=== PATIENT | male | born 1990 | race Caucasian/White ===

== ENCOUNTER 2017-01-22 18:31 | Emergency (ER) | payer OTHER ==
[2017-01-22] MEDS ORDERED: Adacel Vial IM ONE ×2 (18:46→18:52)
[2017-01-22] MEDS ORDERED: Fluor-I-Strip/Ful-Flo OP ONE ×2 (18:46→18:49)
[2017-01-22] MEDS ORDERED: TETRACAINE 0.5% STERI-UNIT SOL OP STA (18:46)
[2017-01-22 18:47] VITALS: O2SAT 100
[2017-01-22] MEDS ORDERED: Eye-Stream Solution OP ONE (18:48)
[2017-01-22] MEDS ORDERED: Eye-Stream Solution ONE (18:49)
[2017-01-22] MEDS ORDERED: TETRACAINE 0.5% STERI-UNIT SOL OP ONE (18:49)
--- NOTE | 2017-01-22 19:02 | ERPHSYRPT ---
- History of Present Illness Time Seen by Provider: 01/22/17 18:43 Source: patient, family Patient Subjective Stated Complaint: lt eye injury Triage Nursing Assessment: 1800--dog jumped over pt and toenail hit lt eye. red area to inner lt sclera. pt had contact in when incident happened and he removed contact after incident. no drainage noted. visual acuity Physician History: CC: left eye injury Hx: 26 y/o healthy male wears contact lenses. His dog jumped over his head an hour ago and the dog claw scratched left eye. No other injuries. No blurred vision. He took out the contact. Unsure last tetanus vaccine. Timing/Duration: today Location: left eye Severity: mild Allergies/Adverse Reactions: cefaclor [From [facility]] Allergy (Verified 01/22/17 18:47) Home Medications: No Home Meds 1 ea UD 01/22/17 [History] Hx Tetanus, Diphtheria Vaccination/Date Given: No Hx Influenza Vaccination/Date Given: No Hx Pneumococcal Vaccination/Date Given: No Immunizations Up to Date: Yes - Review of Systems Constitutional: No Symptoms Eyes: Tearing, No Vision Changes Abdominal/Gastrointestinal: No Nausea, No Vomiting Skin: No Rash Neurological: No Headache - Past Medical History Pertinent Past Medical History: No - Past Surgical History Past Surgical History: No - Social History Smoking Status: Never smoker Exposure to second hand smoke: Yes Drug Use: none 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) - Nursing Vital Signs Nursing Vital Signs: Initial Vital Signs Temperature 98.3 F Temperature Source Oral Pulse Rate 85 Respiratory Rate 18 Blood Pressure [Right Arm] 147/84 Pain Intensity 0 - Physical Exam General Appearance: alert Vision Acuity Right Eye: 20/50 Vision Acuity Left Eye: 20/200 Eye Exam: bilateral eye: PERRL, EOMI Ears, Nose, Throat Exam: normal ENT inspection, moist mucous membranes Neck Exam: normal inspection, non-tender, supple Neurologic: alert, oriented x 3, cooperative Skin Exam: warm, dry SpO2: 100 Oxygen Delivery: Room Air Comments: Left eye has medial subconjunctival hemorrhage. PERRL. No hyphema. EOMI. Left eye IOP 19. Contact lens is out. Lid everted. No FB. No fluoroscein uptake. - Course Nursing assessment & vital signs reviewed: Yes Ordered Tests: Active Orders 24 hr Category Date Time Status Visual Acuity STAT Care 01/22/17 18:46 Active Medication Summary Discontinued Medications Generic Name Dose Route Start Last Admin Trade Name Suman PRN Reason Stop Dose Admin Diphtheria/Tetanus/Acell Pertussis 0.5 ml 01/22/17 18:46 Adacel Vial IM 01/22/17 18:47 .ONCE ONE Diphtheria/Tetanus/Acell Pertussis Confirm 01/22/17 18:52 Adacel Vial Administered 01/22/17 18:53 Dose 0.5 ml IM .STK-MED ONE Eye Irrigation Solution 15 ml 01/22/17 18:48 Eye-Stream Solution OP 01/22/17 18:49 STAT ONE Eye Irrigation Solution Confirm 01/22/17 18:49 Eye-Stream Solution Administered 01/22/17 18:50 Dose 30 ml .ROUTE .STK-MED ONE Fluorescein Sodium 1 mg 01/22/17 18:46 Zxhkh-D-Jycau/Ful-Josef OP 01/22/17 18:47 STAT ONE Fluorescein Sodium Confirm 01/22/17 18:49 Diktw-M-Ioyjr/Ful-Josef Administered 01/22/17 18:50 Dose 1 mg OP .STK-MED ONE Tetracaine HCl 4 ml 01/22/17 18:46 Tetracaine 0.5% Steri-Unit Dion OP 01/22/17 18:47 STAT STA Tetracaine HCl Confirm 01/22/17 18:49 Tetracaine 0.5% Steri-Unit Dion Administered 01/22/17 18:50 Dose 4 ml OP .STK-MED ONE - Progress Progress Note: 01/22/17 19:02 Rx acular and cipro eye gtts. Advised eye follow up before wearing contact lenses. Counseled pt/family regarding: diagnosis, need for follow-up - Departure Time of Disposition: 19:02 Departure Disposition: Home Clinical Impression: Conjunctival hemorrhage, left eye Condition: Stable Critical Care Time: No Referrals: DOCTOR,NO FAMILY [Primary Care Provider] - Instructions: Eye Contusion Additional Instructions: Rx cipro eye drops. Rx acular eye drops. No contact lense useage until seen by eye doctor. Follow up with eye doctor in 1-2 days. Prescriptions: Ciprofloxacin 0.3% Ophth [Ciloxan OPHTH] 1 drops OP Q4HWA #1 bottle Ketorolac Tromethamine 0.5% [Acular OPTH DION] 1 drops OP QID #1 bottle
[2017-01-22 19:13] VITALS: BP 134/75; PULSE 72
== END 2017-01-22 19:13 | disposition home or self-care (01) ==
LOC: ED 18:31
DX: H11.32 Conjunctival hemorrhage, left eye (principal); W54.1XXA Struck by dog, initial encounter
CPT/HCPCS: 90471; 90715; 99284

== ENCOUNTER 2018-02-20 02:51 | Emergency (ER) | payer OTHER ==
[2018-02-20] MEDS ORDERED: Fluor-I-Strip/Ful-Flo OP ONE ×2 (03:01→03:10)
[2018-02-20] MEDS ORDERED: TETRACAINE 0.5% STERI-UNIT SOL OP ONE (03:01)
[2018-02-20] MEDS ORDERED: Eye-Stream Solution ONE (03:07)
[2018-02-20 03:08] VITALS: BP 120/82; PULSE 63; O2SAT 98
[2018-02-20] MEDS ORDERED: Eye-Stream Solution OP ONE (03:10)
[2018-02-20] MEDS ORDERED: TETRACAINE 0.5% STERI-UNIT SOL OP STA (03:10)
[2018-02-20] MEDS ORDERED: Sodium Chloride 0.9% 500 ML 500 ML IV ONE (03:16)
--- NOTE | 2018-02-20 03:21 | ERPHSYRPT ---
- History of Present Illness Time Seen by Provider: 02/20/18 03:16 Source: patient Exam Limitations: no limitations Patient Subjective Stated Complaint: pt states that while working something flew into his right eye around 0000 on 02/19/18. he states that the eye did not bother him until he went home and took a nap at approximately 2100. states he woke up with eye irritation and redness. Triage Nursing Assessment: pt right eye is red, swollen, and appears weepy. pt states that he does have a headache. Physician History: patient states he had some coal dusts that got into his right eye while at work yesterday. Patient was wearing some protective glasses but dust still was able to get into his eye. Patient states that yesterday he was doing fine without any eye pain or visual changes. Tonight when he awaken at around 9 PM, patient noted increase right eye discomfort along with increased tear production. Patient with some blurred vision due to tear production. States was unable to visualize any foreign body in right eye. Timing/Duration: yesterday Location: right eye Severity: mild Apparent Injury: possibly Associated Symptoms: pain, burning, itching, foreign body sensation, No sensitivity to light, No redness, No decreased vision, No blurred vision, No double vision Visual Assistive Devices: Glasses Allergies/Adverse Reactions: cefaclor [From [facility]] Allergy (Verified 01/22/17 18:47) Home Medications: No Home Meds [No Home Meds] 1 [facility] UD 01/22/17 [History] Hx Tetanus, Diphtheria Vaccination/Date Given: Yes Hx Influenza Vaccination/Date Given: No Hx Pneumococcal Vaccination/Date Given: No Immunizations Up to Date: No - Review of Systems Constitutional: No Fever, No Chills Eyes: No Symptoms, Discharge, Eye Pain, Eye Redness, Tearing, Foreign Body Sensation, No Photophobia, No Vision Changes, No Double Vision Ears, Nose, & Throat: No Symptoms Respiratory: No Cough, No Dyspnea Cardiac: No Chest Pain, No Edema, No Syncope Abdominal/Gastrointestinal: No Abdominal Pain, No Nausea, No Vomiting, No Diarrhea Genitourinary Symptoms: No Dysuria Musculoskeletal: No Back Pain, No Neck Pain Skin: No Rash Neurological: No Dizziness, No Focal Weakness, No Sensory Changes Psychological: No Symptoms Endocrine: No Symptoms All Other Systems: Reviewed and Negative - Past Medical History Pertinent Past Medical History: Yes Neurological History: No Pertinent History ENT History: No Pertinent History Cardiac History: No Pertinent History Respiratory History: No Pertinent History Endocrine Medical History: No Pertinent History Musculoskeletal History: Fractures GI Medical History: No Pertinent History History: No Pertinent History Psycho-Social History: No Pertinent History Male Reproductive Disorders: No Pertinent History - Past Surgical History Past Surgical History: No Neuro Surgical History: No Pertinent History Cardiac: No Pertinent History Respiratory: No Pertinent History Gastrointestinal: No Pertinent History Genitourinary: No Pertinent History Musculoskeletal: No Pertinent History Male Surgical History: No Pertinent History - Social History Smoking Status: Never smoker Exposure to second hand smoke: No Drug Use: none 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) - Nursing Vital Signs Nursing Vital Signs: Initial Vital Signs Temperature 98.3 F 02/20/18 02:52 Pulse Rate 63 02/20/18 02:52 Respiratory Rate 16 02/20/18 02:52 Blood Pressure 120/82 02/20/18 02:52 O2 Sat by Pulse Oximetry 98 02/20/18 02:52 Pain Scale Pain Intensity 4 - Physical Exam General Appearance: no apparent distress Vision Acuity Degree Evaluation Phase: Corrected Vision Acuity Right Eye: 20/20 Vision Acuity Left Eye: 20/20 Eye Exam: right eye: ecchymosis, bilateral eye: normal inspection, PERRL, EOMI Ears, Nose, Throat Exam: normal ENT inspection Neck Exam: normal inspection Respiratory Exam: normal breath sounds Cardiovascular Exam: regular rate/rhythm Skin Exam: normal color, warm, dry SpO2: 98 Procedures - Eye Procedure Timeout: Performed Tetracaine Drops Administered: Yes Remaining Material after FB Removal: none Eye Irrigated w/ Saline (ccs): 500 Antibiotic Oinment/Drps Admin: right eye - Course Nursing assessment & vital signs reviewed: Yes Ordered Tests: Active Orders 24 hr Category Date Time Status Az Lens Irrigation STAT Care 02/20/18 03:15 Active Medication Summary Discontinued Medications Generic Name Dose Route Start Last Admin Trade Name Suman PRN Reason Stop Dose Admin Eye Irrigation Solution Confirm 02/20/18 03:07 Eye-Stream Solution Administered 02/20/18 03:08 Dose 30 ml .ROUTE .STK-MED ONE Eye Irrigation Solution 15 ml 02/20/18 03:10 02/20/18 03:13 Eye-Stream Solution OP 02/20/18 03:11 15 ml STAT ONE Administration Fluorescein Sodium Confirm 02/20/18 03:01 Ykchb-T-Fqsyg/Ful-Josef Administered 02/20/18 03:02 Dose 2 mg OP .STK-MED ONE Fluorescein Sodium 1 mg 02/20/18 03:10 02/20/18 03:13 Hztcw-I-Pmgnm/Ful-Josef OP 02/20/18 03:11 1 mg STAT ONE Administration Tetracaine HCl Confirm 02/20/18 03:01 Tetracaine 0.5% Steri-Unit Drea Administered 02/20/18 03:02 Dose 4 ml OP .STK-MED ONE Tetracaine HCl 4 ml 02/20/18 03:10 02/20/18 03:13 Tetracaine 0.5% Steri-Unit Drea OP 02/20/18 03:11 4 ml STAT STA Administration - Progress Progress: improved Progress Note: 02/20/18 03:24 states his right eye feels better after irrigation. Counseled pt/family regarding: diagnosis - Departure Time of Disposition: 03:24 Departure Disposition: Home Clinical Impression: Foreign body of right eye Condition: Stable Critical Care Time: No Instructions: Foreign Body in Eye Additional Instructions: Rx: Sulfacetamide ophthalmic Return for worse eye pain, redness, swelling, blurred vision or any problems Prescriptions: Sulfacetamide Sodium Ophth [Sodium Sulamyd Eye Drops 15 ml] 2 drops OP QID 7 Days #1 bottle
[2018-02-20] MEDS ORDERED: SODIUM SULAMYD EYE DROPS 15 ML OP ONE ×2 (03:36→03:39)
== END 2018-02-20 03:51 | disposition home or self-care (01) ==
LOC: ED 02:51
DX: T15.91XA Foreign body on external eye, part unspecified, right eye, initial encounter (principal); T16.1XXA Foreign body in right ear, initial encounter; X58.XXXA Exposure to other specified factors, initial encounter; Y93.89 Activity, other specified; Y92.64 Mine or pit as the place of occurrence of the external cause; Y99.0 Civilian activity done for income or pay; H57.11 Ocular pain, right eye
CPT/HCPCS: 66999; 99284; A9270-GY

== ENCOUNTER 2018-11-29 16:23 | Emergency (ER) | payer OTHER ==
[2018-11-29 16:42] VITALS: O2SAT 100
[2018-11-29] MEDS ORDERED: Sodium Chloride 0.9% 1000 ML 1,000 ML IV STA (16:49)
[2018-11-29] MEDS ORDERED: Sodium Chloride 0.9% 1000 ML 1,000 ML ONE (16:55)
--- NOTE | 2018-11-29 16:57 | ERPHSYRPT ---
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 DENIES BLURRED VISION, SLURRED SPEECH, FOCAL NUMBNESS , TINGLING OR WEAKNESS IN EXTREMITIES. Witnessed: by family Prior Episodes: multiple episodes today Timing/Duration: today Precipitating Factors: lightheadedness Context: sitting Loss of Consciousness: no loss of consciousness Charcter of event(s): felt faint, almost passed out Allergies/Adverse Reactions: cefaclor [From Cecl[facility]] Allergy (Verified 11/29/18 16:42) Hx Tetanus, Diphtheria Vaccination/Date Given: Yes Hx Influenza Vaccination/Date Given: No Hx Pneumococcal Vaccination/Date Given: No - Past Medical History Pertinent Past Medical History: Yes Neurological History: No Pertinent History ENT History: No Pertinent History Cardiac History: No Pertinent History Respiratory History: No Pertinent History Endocrine Medical History: No Pertinent History Musculoskeletal History: Fractures GI Medical History: No Pertinent History History: No Pertinent History Psycho-Social History: Anxiety Male Reproductive Disorders: No Pertinent History - Past Surgical History Past Surgical History: No Neuro Surgical History: No Pertinent History Cardiac: No Pertinent History Respiratory: No Pertinent History Gastrointestinal: No Pertinent History Genitourinary: No Pertinent History Musculoskeletal: No Pertinent History Male Surgical History: No Pertinent History - Social History Smoking Status: Current every day smoker How long have you smoked: 2 years Exposure to second hand smoke: Yes Drug Use: none 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) - Review of Systems Constitutional: Fever Eyes: No Symptoms Ears, Nose, & Throat: No Symptoms Respiratory: No Symptoms Cardiac: No Chest Pain, No Edema, No Syncope Abdominal/Gastrointestinal: Nausea, Vomiting Genitourinary Symptoms: No Dysuria Musculoskeletal: No Back Pain, No Neck Pain Skin: No Rash Psychological: No Symptoms Endocrine: No Symptoms Physical Exam - Nursing Vital Signs Nursing Vital Signs: Initial Vital Signs Temperature 97.7 F 11/29/18 16:30 Pulse Rate 75 11/29/18 16:30 Blood Pressure 112/66 11/29/18 16:30 O2 Sat by Pulse Oximetry 100 11/29/18 16:30 Pain Scale Pain Intensity 0 - [place] Coma Scale Best Eye Response ([place]): (4) open spontaneously Best Verbal Response ([place]): (5) oriented Best Motor Response (Rakesh): (6) obeys commands [place] Total: 15 - Physical Exam General Appearance: no apparent distress, alert Eye Exam: bilateral eye: normal inspection, PERRL, EOMI Ears, Nose, Throat Exam: normal ENT inspection, pharynx normal, moist mucous membranes Neck Exam: normal inspection, non-tender, supple, full range of motion Respiratory: normal breath sounds, lungs clear, No chest tenderness, No respiratory distress Cardiovascular: regular rate/rhythm, capillary refill <2 sec, No murmur, No pulse deficit Gastrointestinal: soft, normal bowel sounds, No tenderness, No distention, No mass Back Exam: normal inspection, normal range of motion, No CVA tenderness, No vertebral tenderness Extremity Exam: normal inspection, normal range of motion, pelvis stable, No tenderness Peripheral Pulses: carotid (R): 2+, carotid (L): 2+, femoral (R): 2+, femoral (L ): 2+, dorsalis-pedis (R): 2+, dorsalis-pedis (L): 2+ Mental Status: alert, oriented x 3, cooperative forming operator Exam: normal speech, PERRL, No facial droop Coordination/Gait: normal finger to nose Motor/Sensory: no motor deficit, no sensory deficit, no pronator drift DTR: bicep (R): 2+, bicep (L): 2+, tricep (R): 2+, tricep (L): 2+, knee (R): 2+ , knee (L): 2+, ankle (R): 2+, ankle (L): 2+ Skin Exam: normal color, warm, dry, No rash SpO2 Interpretation: normal SpO2: 100 Oxygen Delivery: Room Air - Course EKG Interpreted by Me: RATE, Sinus Rhythm, NORMAL AXIS - CT Exams Head CT Interpretation: Tele-radiologist Report, No/Intracranial Hemorrhag Ordered Tests: Active Orders 24 hr Category Date Time Status Orthostatic Vital Signs STAT Care 11/29/18 16:48 Active HEAD WITHOUT CONTRAST [CT] Stat Exams 11/29/18 16:58 Taken BMP Stat Lab 11/29/18 17:00 Completed CBC W DIFF Stat Lab 11/29/18 17:00 Completed MAGNESIUM Stat Lab 11/29/18 17:00 Completed EKG STAT RT 11/29/18 16:49 Active Medication Summary Discontinued Medications Generic Name Dose Route Start Last Admin Trade Name Freq PRN Reason Stop Dose Admin Sodium Chloride 1,000 mls @ 999 mls/hr 11/29/18 16:49 11/29/18 17:59 Sodium Chloride 0.9% 1000 Ml IV 11/29/18 17:49 Infused .Q1H1M STA Infusion Sodium Chloride Confirm 11/29/18 16:55 Sodium Chloride 0.9% 1000 Ml Administered 11/29/18 16:56 Dose 1,000 mls @ ud .ROUTE .[facility]-MED ONE Lab/Rad Data: Laboratory Result Diagrams 11/29/18 17:00 11/29/18 17:00 Laboratory Results 11/29/18 11/29/18 11/29/18 Range/Units 17:00 17:00 17:00 WBC (4.0-10.5) K/mm3 RBC (4.1-5.6) M/mm3 Hgb (12.5-18.0) gm/dl Hct (42-50) % MCV (78-100) fl MCH (26-32) pg MCHC (32-36) g/dl RDW (11.5-14.0) % Plt Count (150-450) K/mm3 MPV (6-9.5) fl Gran % (36.0-66.0) % Eos # (Auto) (0-0.5) Absolute Lymphs (auto) (1.0-4.6) Absolute Monos (auto) (0.0-1.3) Lymphocytes % (24.0-44.0) % Monocytes % (0.0-12.0) % Eosinophils % (0.00-5.0) % Basophils % (0.0-0.4) % Absolute Granulocytes (1.4-6.9) Basophils # (0-0.4) Sodium 138 (137-145) mmol/L Potassium 4.2 (3.5-5.1) mmol/L Chloride 101 (98-107) mmol/L Carbon Dioxide 28 (22-30) mmol/L Anion Gap 12.5 (5-15) MEQ/L BUN 18 (9-20) mg/dL Creatinine 1.00 (0.66-1.25) mg/dL Estimated GFR > 60.0 ML/MIN Glucose 101 (74-106) mg/dL Calcium 9.3 (8.4-10.2) mg/dL Magnesium 1.9 (1.6-2.3) mg/dL Influenza Type A Ag NEGATIVE (NEGATIVE) Influenza Type B Ag NEGATIVE (NEGATIVE) RSV (PCR) NEGATIVE (Negative) 11/29/18 Range/Units 17:00 WBC 4.2 (4.0-10.5) K/mm3 RBC 4.84 (4.1-5.6) M/mm3 Hgb 14.3 (12.5-18.0) gm/dl Hct 41.2 L (42-50) % MCV 85.1 (78-100) fl MCH 29.5 (26-32) pg MCHC 34.7 (32-36) g/dl RDW 13.3 (11.5-14.0) % Plt Count 174 (150-450) K/mm3 MPV 10.2 H (6-9.5) fl Gran % 55.6 (36.0-66.0) % Eos # (Auto) 0.04 (0-0.5) Absolute Lymphs (auto) 1.25 (1.0-4.6) Absolute Monos (auto) 0.55 (0.0-1.3) Lymphocytes % 30.0 (24.0-44.0) % Monocytes % 13.2 H (0.0-12.0) % Eosinophils % 1.0 (0.00-5.0) % Basophils % 0.2 (0.0-0.4) % Absolute Granulocytes 2.31 (1.4-6.9) Basophils # 0.01 (0-0.4) Sodium (137-145) mmol/L Potassium (3.5-5.1) mmol/L Chloride (98-107) mmol/L Carbon Dioxide (22-30) mmol/L Anion Gap (5-15) MEQ/L BUN (9-20) mg/dL Creatinine (0.66-1.25) mg/dL Estimated GFR ML/MIN Glucose (74-106) mg/dL Calcium (8.4-10.2) mg/dL Magnesium (1.6-2.3) mg/dL Influenza Type A Ag (NEGATIVE) Influenza Type B Ag (NEGATIVE) RSV (PCR) (Negative) - Progress Progress Note: 11/29/18 17:04 IV NORMAL SALINE 1000ML/HR Counseled pt/family regarding: lab results, diagnosis, need for follow-up, rad results - Departure Time of Disposition: 18:30 Departure Disposition: Home Clinical Impression: NEAR SYNCOPE, VERTIGO Condition: Stable Critical Care Time: No Referrals: CIPRIANO DUCKWORTH FNP [Primary Care Provider] - Additional Instructions: FOLLOWUP WITH YOUR PRIMARY CARE PROVIDER IN 2 DAYS. DRINK PLENTY OF FLUIDS. ZOFRAN 4MG EVERY 6 HOURS NEEDED FOR NAUSEA. OFF WORK UNTIL 12/01/2018. RETURN TO EMERGENCY FOR RECURRENT SYMPTOMS. Prescriptions: Ondansetron ODT 4 MG [Zofran Odt 4 mg] 4 mg PO Q6H PRN PRN #8 tab.rapdis PRN Reason: Nausea
[2018-11-29 17:13] LABS: BASOPHIL % 0.2 % (0.0-0.4); Basophil (Absolute #) 0.01 (0-0.4); Eosinophil (Absolute #) 0.04 (0-0.5); Granulocytes % 55.6 % (36.0-66.0); Hematocrit 41.2 % (42-50); Hemoglobin 14.3 gm/dl (12.5-18.0); Lymphocyte (Absolute #) 1.25 (1.0-4.6); Mean Cell Volume 85.1 fl (78-100); Mean Corpuscular Hemoglobin 29.5 pg (26-32); Mean Corpuscular Hgb Concent. 34.7 g/dl (32-36); Mean Platelet Volume 10.2 fl (6-9.5); Monocyte (Absolute #) 0.55 (0.0-1.3); Monocytes % 13.2 % (0.0-12.0); Platelet Count 174 K/mm3 (150-450); Red Blood Count 4.84 M/mm3 (4.1-5.6); Red Cell Distribution Width 13.3 % (11.5-14.0); White Blood Count 4.2 K/mm3 (4.0-10.5)
[2018-11-29 17:28] LABS: ANION GAP 12.5 MEQ/L (5-15); BLOOD UREA NITROGEN 18 mg/dL (9-20); CHLORIDE 101 mmol/L (98-107); Calcium 9.3 mg/dL (8.4-10.2); Carbon Dioxide 28 mmol/L (22-30); Glucose 101 mg/dL (74-106); Potassium 4.2 mmol/L (3.5-5.1); SODIUM 138 mmol/L (137-145)
[2018-11-29 18:04] VITALS: BP 106/63; PULSE 66
[2018-11-29 18:13] LABS: INFLUENZA A NEGATIVE (NEGATIVE); INFLUENZA B NEGATIVE (NEGATIVE); RESPIRATORY SYNCTIAL VIRUS NEGATIVE (Negative)
--- NOTE | 2018-11-29 19:01 | XRAY ---
Indication: Near syncope. Multiple contiguous axial images obtained through the head without contrast. Comparison: None Normal appearing brain parenchyma, ventricles, and bony calvarium. Visualized paranasal sinuses and mastoid air cells are clear. Impression: Normal CT head without contrast exam. Comment: Preliminary interpretation was made by [facility]. No discrepancy. CTDI 66.59
== END 2018-11-29 18:34 | disposition home or self-care (01) ==
LOC: ED 16:23
DX: R55 Syncope and collapse (principal); F41.9 Anxiety disorder, unspecified; R51 Headache; R42 Dizziness and giddiness; R11.0 Nausea
CPT/HCPCS: 36415; 70450; 80048; 83735; 85025; 87631; 93005; 96360; 99284

== ENCOUNTER 2022-07-22 14:20 | Emergency (ER) | payer OTHER ==
[2022-07-22] MEDS ORDERED: Adacel Vial IM ONE ×2 (14:28→14:36)
[2022-07-22] MEDS ORDERED: TORAdol 30 mg Injection IM ONE (14:29)
[2022-07-22] MEDS ORDERED: TORAdol 30 mg Injection ONE (14:36)
--- NOTE | 2022-07-22 14:41 | ERPHSYRPT ---
- History of Present Illness Source: patient Exam Limitations: no limitations Patient Subjective Stated Complaint: Pt stepped on a nail with his right heel Triage Nursing Assessment: Pt brought to the ER by his , vital wnl, rates pain 8/10, states that nail went all the into his heel and was approx 2 inches long, bled initially but had stopped by the time he arrived at the ED, pulses normal, skin n/w/d, unable to place weight on foot, no other complaints at this time Physician History: 31 yo WM w plantar puncture wound at home. Stepped on a board w a nail through it. Pain is 8 on scale. He denies other injuries. Tdap given in ER. Method of Injury: incised (Stepped on a nail) Occurred: just prior to arrival Severity of Pain-Max: severe Severity of Pain-Current: severe Lower Extremities Pain: foot: right Modifying Factors: Improves With: movement Associated Symptoms: unable to bear weight Allergies/Adverse Reactions: cefaclor [From Ce[employer]] Allergy (Verified 07/22/22 14:33) Hx Tetanus, Diphtheria Vaccination/Date Given: Yes Hx Influenza Vaccination/Date Given: No Hx Pneumococcal Vaccination/Date Given: No Travel Risk - International Travel Have you traveled outside of the country in past 3 weeks: No - Coronavirus Screening Are you exhibiting any of the following symptoms?: No Close contact with a COVID-19 positive Pt in past 14-21 Days: No - Vaccine Status Have you recieved a Covid-19 vaccination: No - Review of Systems Constitutional: No Symptoms Eyes: No Symptoms Ears, Nose, & Throat: No Symptoms Respiratory: No Symptoms Cardiac: No Symptoms Abdominal/Gastrointestinal: No Symptoms Genitourinary Symptoms: No Symptoms Skin: No Symptoms Neurological: No Symptoms Psychological: No Symptoms Endocrine: No Symptoms Hematologic/Lymphatic: No Symptoms Immunological/Allergic: No Symptoms - Past Medical History Pertinent Past Medical History: Yes Neurological History: No Pertinent History ENT History: No Pertinent History Cardiac History: No Pertinent History Respiratory History: No Pertinent History Endocrine Medical History: No Pertinent History Musculoskeletal History: Fractures GI Medical History: No Pertinent History History: No Pertinent History Psycho-Social History: Anxiety Male Reproductive Disorders: No Pertinent History - Past Surgical History Past Surgical History: Yes Neuro Surgical History: No Pertinent History Cardiac: No Pertinent History Respiratory: No Pertinent History Gastrointestinal: No Pertinent History Genitourinary: No Pertinent History Musculoskeletal: No Pertinent History Male Surgical History: No Pertinent History Other Surgical History: lip and ankle - Social History Smoking Status: Former smoker How long have you smoked: 2 years Exposure to second hand smoke: No Drug Use: none Patient Lives Alone: No Significant Family History: no pertinent family hx - Nursing Vital Signs Nursing Vital Signs: Initial Vital Signs Temperature 96.7 F 07/22/22 14:26 Pulse Rate 97 H 07/22/22 14:26 Blood Pressure 139/85 07/22/22 14:26 O2 Sat by Pulse Oximetry 100 07/22/22 14:26 Pain Scale Pain Intensity 8 Borderline hypertensive - Physical Exam General Appearance: no apparent distress Eyes, Ears, Nose, Throat Exam: normal ENT inspection, TMs normal, pharynx normal, moist mucous membranes Neck Exam: normal inspection, non-tender, supple, full range of motion, No Brudzinski, No Kernig's, No meningismus Cardiovascular/Respiratory Exam: normal breath sounds, regular rate/rhythm, heart sounds normal Gastrointestinal/Abdominal Exam: non-tender, soft Back Exam: normal inspection Hips Exam: bilateral: non-tender, normal inspection, normal range of motion, no evidence of injury Legs Exam: bilateral leg: non-tender, normal inspection, normal range of motion, no evidence of injury Knees Exam: bilateral knee: non-tender, normal inspection, normal range of motion, no evidence of injury Ankle Exam: bilateral ankle: non-tender, normal inspection, normal range of motion, no evidence of injury Foot Exam: right foot: soft tissue tenderness (R calcaneal plantar puncture wound/Good hemostasis/Good pedal pulse, distal sensation, and capillary return) Neuro/Tendon Exam: normal sensation, normal motor functions, normal tendon functions, responds to pain, no evidence tendon injury, No motor deficit, No sensory deficit Mental Status Exam: alert, oriented x 3, cooperative Skin Exam: normal color, warm, dry SpO2 Interpretation: normal SpO2: 100 O2 Delivery: Room Air Ordered Tests: Active Orders 24 hr Category Date Time Status FOOT (MINIMUM 3 VIEWS) Stat Exams 07/22/22 14:59 Completed Medication Summary Discontinued Medications Generic Name Dose Route Start Last Admin Trade Name Freq PRN Reason Stop Dose Admin Diphtheria/Tetanus/Acell Pertussis 0.5 ml 07/22/22 14:28 07/22/22 14:36 Tdap --Diph,Pertuss(Acell),Tet Vac/Pf 0.5 Ml Vial IM 07/22/22 14:29 0.5 ml .ONCE ONE Administration Diphtheria/Tetanus/Acell Pertussis Confirm 07/22/22 14:36 Tdap --Diph,Pertuss(Acell),Tet Vac/Pf 0.5 Ml Vial Administered 07/22/22 14:37 Dose 0.5 ml IM .STK-MED ONE Ketorolac Tromethamine 60 mg 07/22/22 14:29 07/22/22 14:38 Ketorolac Tromethamine 30 Mg/Ml Inj IM 07/22/22 14:30 60 mg STAT ONE Administration Ketorolac Tromethamine Confirm 07/22/22 14:36 Ketorolac Tromethamine 30 Mg/Ml Inj Administered 07/22/22 14:37 Dose 60 mg .ROUTE .STK-MED ONE - Progress Progress Note: 07/22/22 14:57 TDAP/60mg IM Toradol Counseled pt/family regarding: diagnosis, need for follow-up, rad results - Departure Departure Disposition: Home Clinical Impression: Puncture wound of plantar aspect of foot Condition: Stable Critical Care Time: No Referrals: JUANCHO GEORGE DO [Primary Care Provider] - Follow up/PCP as directed Instructions: Wound Care (DC) Additional Instructions: Pain meds as needed Wash puncture twice a day with soap/water Watch for signs of infection-redness/increasing pain/pus/temperature greater than 100.5 Cipro twice a day for 3 days Prescriptions: Hydrocodone/Acetaminophen [Hydrocodone-Acetamin 5-325 mg] 1 tab PO Q4HPRN PRN #5 tablet MDD 4 PRN Reason: Pain Ciprofloxacin [Cipro 500 MG] 500 mg PO BID #6 tablet
[2022-07-22 15:05] VITALS: BP 139/67; PULSE 96
--- NOTE | 2022-07-22 18:05 | XRAY ---
Indication: Pain following stepping on nail. Comparison: None 3 nonweightbearing views right foot negative for radiopaque foreign body. Incidental cuboid accessory ossicle. No bony, articular, or soft tissue abnormalities.
[2022-07-22 19:57] VITALS: O2SAT 100
== END 2022-07-22 15:04 | disposition home or self-care (01) ==
LOC: ED 14:20
DX: S91.331A Puncture wound without foreign body, right foot, initial encounter (principal); W22.09XA Striking against other stationary object, initial encounter; W45.0XXA Nail entering through skin, initial encounter; Z79.891 Long term (current) use of opiate analgesic; Z28.310 Unvaccinated for COVID-19
CPT/HCPCS: 73630; 90471; 90715; 96372; 99283; J1885

== ENCOUNTER 2022-11-25 12:10 | Emergency (ER) | payer OTHER ==
[2022-11-25 12:30] VITALS: O2SAT 97
[2022-11-25 13:13] LABS: Appearance CLEAR (CLEAR); Bilirubin NEGATIVE (NEGATIVE); Glucose NEGATIVE (NEGATIVE); Ketones NEGATIVE (NEGATIVE); Mucus SLIGHT /HPF (NEGATIVE); Nitrite NEGATIVE (NEGATIVE); Protein,Urine Dip NEGATIVE (Negative); RBC NEGATIVE Ery/ul (0-5); Urobilinogen 0.2 mg/dL (0-1)
[2022-11-25 13:14] LABS: Dipstick done @ ? MAIN LAB; Urine Cultured Indicated? NO
[2022-11-25 13:25] VITALS: BP 119/65; PULSE 75
--- NOTE | 2022-11-25 13:36 | ERPHSYRPT ---
- History of Present Illness Time Seen by Provider: 11/25/22 12:25 Source: patient Patient Subjective Stated Complaint: Patient states he fell down nayeli concrete steps at home between 11pm and 12am last night. Patient hit his head and "skinned up" his back. Patient reports that he drank "a lot" of alcohol last night prior to the fall. reports a loss of conciousness. Triage Nursing Assessment: Patient is alert and oriented. NO SOB. Patient with an abrasion to the back of his head and several small abrasion down his spine. None of the abrasions are currently bleeding. Swelling and tenderness noted around abrasions. Physician History: Patient is a 32-year-old white male who fell down a flight of stairs while intoxicated last evening. This occurred several hours prior to arrival he was out of unconscious for 5 minutes according to significant other complaints pain in the back of the head neck T and L-spine. Allergies/Adverse Reactions: cefaclor [From [employer]] Allergy (Verified 11/25/22 12:15) Home Medications: armodafiniL [Nuvigil] 1 tab PO CLARIFY 11/25/22 [History] Hx Tetanus, Diphtheria Vaccination/Date Given: Yes Hx Influenza Vaccination/Date Given: No Hx Pneumococcal Vaccination/Date Given: No Immunizations Up to Date: Yes Travel Risk - International Travel Have you traveled outside of the country in past 3 weeks: No - Coronavirus Screening Are you exhibiting any of the following symptoms?: No Close contact with a COVID-19 positive Pt in past 14-21 Days: No - Vaccine Status Have you recieved a Covid-19 vaccination: No - Review of Systems Constitutional: No Fever, No Chills Eyes: No Symptoms Ears, Nose, & Throat: No Symptoms Respiratory: No Cough, No Dyspnea Cardiac: No Chest Pain, No Edema, No Syncope Abdominal/Gastrointestinal: No Abdominal Pain, No Nausea, No Vomiting, No Diarrhea Genitourinary Symptoms: No Dysuria Musculoskeletal: No Back Pain, No Neck Pain Skin: No Rash Neurological: No Dizziness, No Focal Weakness, No Sensory Changes Psychological: No Symptoms Endocrine: No Symptoms All Other Systems: Reviewed and Negative - Past Medical History Pertinent Past Medical History: Yes Neurological History: No Pertinent History ENT History: No Pertinent History Cardiac History: No Pertinent History Respiratory History: No Pertinent History Endocrine Medical History: No Pertinent History Musculoskeletal History: Fractures GI Medical History: No Pertinent History History: No Pertinent History Psycho-Social History: Anxiety Male Reproductive Disorders: No Pertinent History - Past Surgical History Past Surgical History: Yes Neuro Surgical History: No Pertinent History Cardiac: No Pertinent History Respiratory: No Pertinent History Gastrointestinal: No Pertinent History Genitourinary: No Pertinent History Musculoskeletal: No Pertinent History Male Surgical History: No Pertinent History Other Surgical History: lip from dog bite and ankle - Social History Smoking Status: Former smoker How long have you smoked: 2 years Exposure to second hand smoke: No Drug Use: none Patient Lives Alone: No Significant Family History: no pertinent family hx - Nursing Vital Signs Nursing Vital Signs: Initial Vital Signs Temperature 97.8 F 11/25/22 12:18 Pulse Rate 81 11/25/22 12:18 Respiratory Rate 17 11/25/22 12:18 Blood Pressure 199/65 11/25/22 12:18 O2 Sat by Pulse Oximetry 97 11/25/22 12:18 Pain Scale Pain Intensity 10 - Rakesh Coma Score Best Eye Response ([place]): (4) open spontaneously Best Verbal Response ([place]): (5) oriented Best Motor Response (Rakesh): (6) obeys commands Rakesh Total: 15 - Physical Exam General Appearance: mild distress Head Injury: no evidence of injury Eye Exam: PERRL/EOMI ENT Exam: airway nml Neck Exam: full range of motion, tenderness Respiratory/Chest Exam: normal breath sounds, No chest tenderness, No respiratory distress Cardiovascular Exam: normal heart sounds, regular rate/rhythm Gastrointestinal Exam: soft, No tenderness, No distention, No guarding, No ecchymosis Back Exam: vertebral tenderness (Tenderness of the spinous processes of the T and L-spine.) Extremity Exam: normal inspection, normal range of motion, pelvis stable, No deformities Peripheral Pulses: carotid (R): 2+, carotid (L): 2+ Neurologic Exam: alert, oriented x 3, cooperative, sensation nml, No motor deficits Skin Exam: normal color, warm, dry SpO2: 97 - Radiology Exams T-Spine X-ray Interpretation: Interpreted by me, Negative L-Spine X-ray Interpretation: Interpreted by me, Negative - CT Exams Head CT Interpretation: Tele-radiologist Report Cervical Spine CT Interpretation: Tele-radiologist Report Ordered Tests: Active Orders 24 hr Category Date Time Status CERVICAL SPINE WO CONTRAST [CT] Stat Exams 11/25/22 12:17 Taken HEAD WITHOUT CONTRAST [CT] Stat Exams 11/25/22 12:17 Taken LUMBAR LIMITED (2 OR 3 VIEWS) Stat Exams 11/25/22 12:18 Taken THORACIC SPINE (AP,LAT,SWIMM) Stat Exams 11/25/22 12:19 Taken UA W/RFX CULTURE Stat Lab 11/25/22 12:52 Completed Lab/Rad Data: Laboratory Results 11/25/22 Range/Units 12:52 Urinalys Dipstick Clnc MAIN LAB Urine Color YELLOW (YELLOW) Urine Appearance CLEAR (CLEAR) Urine pH 5.0 (5-6) Ur Specific [place] 1.020 (1.005-1.025) POC Urine Protein Conf NEGATIVE (Negative) Urine Ketones NEGATIVE (NEGATIVE) Urine Nitrite NEGATIVE (NEGATIVE) Urine Bilirubin NEGATIVE (NEGATIVE) Urine Urobilinogen 0.2 (0-1) mg/dL Urine Leukocytes NEGATIVE (NEGATIVE) Urine WBC (Auto) NONE (0-5) /HPF Urine RBC (Auto) NONE (0-2) /HPF U Epithel Cells (Auto) NONE (FEW) /HPF Urine Bacteria (Auto) NONE (NEGATIVE) /HPF Urine RBC NEGATIVE (0-5) Krishan/ul Urine Mucus (Auto) SLIGHT A (NEGATIVE) /HPF Ur Culture Indicated? NO Urine Glucose NEGATIVE (NEGATIVE) mg/dL - Progress Progress: unchanged Progress Note: 11/25/22 13:35 Patient was examined with imaging to every area that was painful we also obtained a urine to rule out gross hematuria from a renal injury. - Departure Departure Disposition: Home Clinical Impression: Concussion, Multiple contusions Condition: Stable Critical Care Time: No Referrals: SB GARCIA NP [Primary Care Provider] - Follow up/PCP as directed
--- NOTE | 2022-11-25 18:59 | XRAY ---
Indication: Pain following fall. Loss of consciousness. Multiple contiguous axial images obtained through the head without contrast. Comparison: None Minimal right occipital scalp soft tissue swelling with tiny nondepressed occiptal fracture. Otherwise normal appearing brain parenchyma, ventricles, and bony calvarium. Visualized paranasal sinuses and mastoid air cells are clear. Impression: Minimal right occipital scalp soft tissue swelling with tiny occipital fracture. Otherwise normal CT head without contrast exam. Comment: Preliminary interpretation made by [facility] who does not report fracture. Telephone report given to Dr. Jose at 1905 hrs on Nov 25, 2022.
--- NOTE | 2022-11-25 19:05 | XRAY ---
Indication: Pain following fall. Loss of consciousness. Multiple contiguous axial images obtained through the cervical spine. Sagittal and coronal reformatted images obtained. Comparison: None Axial images demonstrates nondepressed right occipital fracture reported on same day CT head exam. Remaining cervical spine negative for acute fracture, suspicious bony lesions, or spinal canal stenosis. Facets are symmetric. Sagittal and coronal reformatted images demonstrates normal alignment with vertebral body heights/disc spaces maintained. No acute compression fracture, subluxation, or jumped facet. Normal appearing craniocervical junction. Visualized noncontrasted soft tissues are unremarkable. Impression: Right occipital skull fracture reported separately. Remaining CT cervical spine is negative. Comment: Preliminary interpretation made by [facility] who does not report occipital fracture. Telephone report was given Dr. Jose at 1905 hrs. on November 25, 2022.
--- NOTE | 2022-11-25 19:05 | XRAY ---
Indication: Pain following fall. Comparison: None AP/lateral thoracic spine demonstrates 12 rib-bearing segments with minimal levoscoliosis centered at T9. No other bony, articular, or soft tissue abnormalities.
--- NOTE | 2022-11-25 19:07 | XRAY ---
Indication: Pain following fall. Comparison: None 3 view lumbar spine demonstrates 6 lumbar segments with sacralized L6. Query old left L1 transverse process fracture. No other bony, articular, or soft tissue abnormalities.
== END 2022-11-25 13:38 | disposition home or self-care (01) ==
LOC: ED 12:10
DX: S06.0X1A Concussion with loss of consciousness of 30 minutes or less, initial encounter (principal); T14.8XXA Other injury of unspecified body region, initial encounter; W10.9XXA Fall (on) (from) unspecified stairs and steps, initial encounter; R51.9 Headache, unspecified; M54.2 Cervicalgia; M54.6 Pain in thoracic spine; M54.50 Low back pain, unspecified; Z79.899 Other long term (current) drug therapy; Z28.310 Unvaccinated for COVID-19
CPT/HCPCS: 70450; 72072; 72100; 72125; 81015; 99283

== ENCOUNTER 2024-07-19 01:17 | Emergency (ER) | payer OTHER ==
[2024-07-19 01:31] VITALS: RESP 18; TEMP 98.8; O2SAT 98
[2024-07-19] MEDS: XYLOCAINE 1% HCL 20 ML MDV IJ ONE (01:47)
--- NOTE | 2024-07-19 02:00 | ERPHSYRPT ---
- History of Present Illness Time Seen by Provider: 07/19/24 01:29 Source: patient Exam Limitations: no limitations Patient Subjective Stated Complaint: pt states he fell and cut his arm on metal tin Triage Nursing Assessment: pt ambulated into the er; pt is axo x4; anxious, talking excessively; c/o laceration to rt forearm; pt states 7/10 pain to rt forearm; 2 lacerations present to rt forearm; multiple abrasion present to rt forearm; strong rt radial pulse; good cap refill to rt hand; skin PDW; no respiratory distress present; vitals wnl Physician History: 33-year-old right-handed dominant male up-to-date with tetanus presented in the ER with multiple laceration right forearm after he fell on a piece of metal. Patient complaining of moderate intensity sharp pain with palpation and movements. Denies any numbness tingling or weakness distally. There was bleeding initially but stopped with applying pressure. No injury anywhere else Allergies/Adverse Reactions: cefaclor [From [employer]] Allergy (Verified 07/19/24 01:19) Home Medications: No Reportable Medications [No Reported Medications] 04/13/24 [History] Hx Tetanus, Diphtheria Vaccination/Date Given: Yes (07/22/22) Hx Influenza Vaccination/Date Given: No Hx Pneumococcal Vaccination/Date Given: No Immunizations Up to Date: No Travel Risk - International Travel Have you traveled outside of the country in past 3 weeks: No - Emerging Infectious Disease Are you exhibiting symptoms associated with any current EIDs: No - Review of Systems Constitutional: No Symptoms Ears, Nose, & Throat: No Symptoms Respiratory: No Symptoms Cardiac: No Symptoms Musculoskeletal: Injury Skin: Skin Lesions Neurological: No Symptoms Hematologic/Lymphatic: No Symptoms Immunological/Allergic: No Symptoms - Past Medical History Pertinent Past Medical History: Yes Neurological History: No Pertinent History ENT History: No Pertinent History Cardiac History: No Pertinent History Respiratory History: No Pertinent History Endocrine Medical History: No Pertinent History Musculoskeletal History: Fractures GI Medical History: No Pertinent History History: No Pertinent History Psycho-Social History: Anxiety Male Reproductive Disorders: No Pertinent History - Past Surgical History Past Surgical History: Yes Neuro Surgical History: No Pertinent History Cardiac: No Pertinent History Respiratory: No Pertinent History Gastrointestinal: No Pertinent History Genitourinary: No Pertinent History Musculoskeletal: No Pertinent History Male Surgical History: No Pertinent History Other Surgical History: lip from dog bite and ankle Significant Family History: no pertinent family hx - Social History Smoking Status: Former smoker How long have you smoked: 2 years Exposure to second hand smoke: No Drug Use: none Patient Lives Alone: No - Social Determinants of Health Will the patient participate in the screening: Yes Do you worry about a steady place to live?: No Do you have any problems with any of the following?: No known problems In the past 12 months,have you had to go without utilities?: No Transportation Issues: No Has anyone in your support network made you feel unsafe?: No Have you or anyone in your house had to go without enough: No - Nursing Vital Signs Nursing Vital Signs: Initial Vital Signs Temperature 98.8 F 07/19/24 01:21 Pulse Rate 95 H 07/19/24 01:21 Respiratory Rate 18 07/19/24 01:21 Blood Pressure 122/93 07/19/24 01:21 O2 Sat by Pulse Oximetry 98 07/19/24 01:21 Pain Scale Pain Intensity 7 - Physical Exam General Appearance: no apparent distress Eye Exam: PERRL/EOMI Ears, Nose, Throat Exam: normal ENT inspection Neck Exam: normal inspection Respiratory Exam: normal breath sounds, lungs clear Cardiovascular Exam: regular rate/rhythm, normal heart sounds Extremity Exam: normal range of motion, lacerations (Multiple laceration proximal anterior forearm measuring 2.5 cm, 2.5 cm and 1 cm and some superficial abrasions. No active spurting, minimal oozing.), tenderness Neurologic Exam: alert, oriented x 3, cooperative Skin Exam: normal color SpO2 Interpretation: normal SpO2: 98 O2 Delivery: Room Air Procedures - Laceration/Wound Repair Right Arm Time of Procedure: 01:58 Wound Location: Right Wound Length (cm): 6 Wound's Depth, Shape: superficial, irregular Wound Explored: clean Irrigated: Yes Hibiclens Prep: Yes Anesthesia: 1% Lidocaine Volume Anesthetic (ccs): 8 Wound Debrided: minimal Suture Size/Type: 4-0, nylon Number of Sutures: 12 Layer Closure?: No Sterile Dressing Applied?: Yes Splint Applied?: No Ordered Tests: Active Orders 24 hr Category Date Time Status Sutures STAT Care 07/19/24 01:45 Active Wound Care STAT Care 07/19/24 01:45 Active Medication Summary Discontinued Medications Generic Name Dose Route Start Last Admin Trade Name Freq PRN Reason Stop Dose Admin Lidocaine HCl 10 ml 07/19/24 01:45 07/19/24 01:47 Lidocaine Hcl 1% 20 Ml Mdv 20 Ml Ml IJ 07/19/24 01:46 10 ml STAT ONE Administration - Progress Progress: improved Progress Note: 07/19/24 01:58 33-year-old is evaluated in the ER for multiple laceration right proximal forearm for he fell against some metal 10. Patient lacerations are superficial, cleaned and repaired. Patient is up-to-date with tetanus. Offered x-rays which patient re declined. commended taking Tylenol ibuprofen and outpatient follow-up. Discussed signs symptoms of worsening needing return to ER which he seems understanding. Stable for discharge. 07/19/24 01:59 Counseled pt/family regarding: diagnosis, need for follow-up Medical Desision Making - Diagnostic Testing Diagnostic test were ordered, analyzed, and reviewed by me: No - Risk of complications The pt has a mod risk of morbidity or mortality based on: Need for minor surgical intervention in patient with know risk factors The pt has a high risk of morbidity or mortality based on: Drug therapy requiring intensive monitoring for toxicity - Departure Departure Disposition: Home Clinical Impression: Forearm laceration, Fall Condition: Stable Critical Care Time: No Referrals: NANI WEBER MD [Primary Care Provider] - Follow up with PCP 1 day Instructions: Laceration Repair With Stitches (DC) Additional Instructions: Take Tylenol/ibuprofen as needed. Follow-up with primary care for reevaluation. Avoid exertional activities. Return to ER for increasing pain swelling redness, difficulty movements, discharge etc. suture removal in 10 to 14 days.
[2024-07-19] MEDS ORDERED: BACIGUENT PACKET ONE (02:05)
[2024-07-19] MEDS: BACIGUENT PACKET TP ONE (02:07)
[2024-07-19 02:12] VITALS: BP 110/83; PULSE 94
== END 2024-07-19 02:14 | disposition home or self-care (01) ==
LOC: ED 01:17
DX: S51.811A Laceration without foreign body of right forearm, initial encounter (principal); W01.118A Fall on same level from slipping, tripping and stumbling with subsequent striking against other sharp object, initial encounter
CPT/HCPCS: 12002; 96372; 99283; A9270-GY

== ENCOUNTER 2024-07-27 11:53 | Emergency (ER) | payer OTHER ==
[2024-07-27 12:06] VITALS: BP 119/66; PULSE 78; RESP 16; TEMP 98.3; O2SAT 97
--- NOTE | 2024-07-27 12:19 | ERPHSYRPT ---
- History of Present Illness Time Seen by Provider: 07/27/24 12:13 Source: patient Exam Limitations: no limitations Patient Subjective Stated Complaint: none Triage Nursing Assessment: Pt arrives to ED, ambulated to bed 10. Pt c/o swelling/redness/itchiness/ pain to healing lacerations to right lower forearm. Pt has 3 healing/sutured lacs to lower forearm. First lac has 5 sutures, second lac also has 5 sutures, and third lac has 2 sutures. States sutures were placed 1 week ago and states was told to leave sutures in for 10-14 days. Not on any antibiotics. Both lacerations that have 5 sutures have some swelling and redness surrounding the sutures. PT c/o tenderness and itching, denies drainage. Denies fever. Physician History: 33-year-old male with lacerations right forearm repaired in this ER almost 7 days ago presented in the ER for wound check. Patient noticed some swelling and redness still there around one of the laceration. Has minimal tenderness. Has itching around. No discharge or fever reported. Sutures well intact. Minimal erythema around upper forearm laceration. Other 2 lacerations no erythema or swelling/redness. No discharge. Minimal tenderness around the lacerations. Sutures well in place. I do not think patient has wound infection and it is premature to remove them. Recommended continue with Tylenol/ibuprofen. Discussed signs symptoms of worsening needing return to ER which he seems understanding. Stable for discharge. Allergies/Adverse Reactions: cefaclor [From [facility]] Allergy (Verified 07/19/24 01:19) Home Medications: No Reportable Medications [No Reported Medications] 04/13/24 [History] Hx Tetanus, Diphtheria Vaccination/Date Given: Yes (07/22/22) Hx Influenza Vaccination/Date Given: No Hx Pneumococcal Vaccination/Date Given: No Travel Risk - International Travel Have you traveled outside of the country in past 3 weeks: No - Emerging Infectious Disease Are you exhibiting symptoms associated with any current EIDs: No - Review of Systems Constitutional: No Symptoms Respiratory: No Symptoms Cardiac: No Symptoms Abdominal/Gastrointestinal: No Symptoms Musculoskeletal: Injury Skin: Skin Lesions Neurological: No Symptoms - Past Medical History Pertinent Past Medical History: Yes Neurological History: No Pertinent History ENT History: No Pertinent History Cardiac History: No Pertinent History Respiratory History: No Pertinent History Endocrine Medical History: No Pertinent History Musculoskeletal History: Fractures GI Medical History: No Pertinent History History: No Pertinent History Psycho-Social History: Anxiety Male Reproductive Disorders: No Pertinent History - Past Surgical History Past Surgical History: Yes Neuro Surgical History: No Pertinent History Cardiac: No Pertinent History Respiratory: No Pertinent History Gastrointestinal: No Pertinent History Genitourinary: No Pertinent History Musculoskeletal: No Pertinent History Male Surgical History: No Pertinent History Other Surgical History: lip from dog bite and ankle Significant Family History: no pertinent family hx - Social History Smoking Status: Former smoker How long have you smoked: 2 years Exposure to second hand smoke: No Drug Use: none Patient Lives Alone: No - Social Determinants of Health Will the patient participate in the screening: Yes Do you worry about a steady place to live?: No In the past 12 months,have you had to go without utilities?: No Transportation Issues: No Has anyone in your support network made you feel unsafe?: No Have you or anyone in your house had to go without enough: No - Nursing Vital Signs Nursing Vital Signs: Initial Vital Signs Temperature 98.3 F 07/27/24 12:02 Pulse Rate 78 07/27/24 12:02 Respiratory Rate 16 07/27/24 12:02 Blood Pressure 119/66 07/27/24 12:02 O2 Sat by Pulse Oximetry 97 07/27/24 12:02 Pain Scale Pain Intensity 5 - Physical Exam General Appearance: no apparent distress Eye Exam: PERRL/EOMI Neck Exam: normal inspection, full range of motion Respiratory Exam: normal breath sounds, lungs clear Cardiovascular Exam: regular rate/rhythm, normal heart sounds Extremity Exam: normal range of motion, other (Lacerations right forearm repaired with intact sutures. Minimal erythema on the proximal laceration. No discharge or fluctuation.) Neurologic Exam: alert, oriented x 3, cooperative Skin Exam: normal color SpO2 Interpretation: normal SpO2: 97 O2 Delivery: Room Air - Progress Progress: unchanged Progress Note: 07/27/24 12:17 33-year-old male with lacerations right forearm repaired in this ER almost 7 days ago presented in the ER for wound check. Patient noticed some swelling and redness still there around one of the laceration. Has minimal tenderness. Has itching around. No discharge or fever reported. Sutures well intact. Minimal erythema around upper forearm laceration. Other 2 lacerations no erythema or swelling/redness. No discharge. Minimal tenderness around the lacerations. Sutures well in place. I do not think patient has wound infection and it is premature to remove them. Recommended continue with Tylenol/ibuprofen. Discussed signs symptoms of worsening needing return to ER which he seems understanding. Stable for discharge. Counseled pt/family regarding: diagnosis, need for follow-up Medical Desision Making - Diagnostic Testing Diagnostic test were ordered, analyzed, and reviewed by me: No - Departure Departure Disposition: Home Clinical Impression: Encounter for re-check of laceration wound Condition: Stable Critical Care Time: No Referrals: NANI WEBER MD [Primary Care Provider] - Follow up with PCP 1 day Instructions: Wound Care (DC) Additional Instructions: Keep it clean and dry. Take Tylenol ibuprofen as needed. Avoid exertional activities. Follow-up with primary care for reevaluation and suture removal in 10 to 14 days from day of laceration. Turn to ER for excruciating pain, redness, fever chills, discharge etc.
== END 2024-07-27 12:25 | disposition home or self-care (01) ==
LOC: ED 11:53
DX: Z48.00 Encounter for change or removal of nonsurgical wound dressing (principal)
CPT/HCPCS: 99281